=== PATIENT | female | born 1980 | race Caucasian/White ===

== ENCOUNTER → 2023-10-08 10:05 | Outpatient (REF) | payer OTHER, SELFPAY | LOC: HWRAD 10:05 | PROVIDERS: ATTENDING PHYSICIAN Internal Medicine Hematology & Oncology; FAMILY PHYSICIAN Internal Medicine | DX: C81.02 Nodular lymphocyte predominant Hodgkin lymphoma, intrathoracic lymph nodes (principal) | CPT/HCPCS: 71260; 74177; Q9967 ==

== ENCOUNTER → 2024-06-22 10:20 | Outpatient (REF) | payer OTHER, SELFPAY | LOC: HWRAD 10:20 | PROVIDERS: ATTENDING PHYSICIAN Internal Medicine | DX: M25.511 Pain in right shoulder (principal); Z00.00 Encounter for general adult medical examination without abnormal findings; R53.83 Other fatigue; E55.9 Vitamin D deficiency, unspecified | CPT/HCPCS: 71046 ==

== ENCOUNTER 2024-10-19 11:43 | Emergency (ER) | payer OTHER, SELFPAY ==
[2024-10-19 11:45] VITALS: BP 136/93
[2024-10-19 12:15] VITALS: BMI 24.5
--- NOTE | 2024-10-19 13:10 | ED.GENMED ---
History of Present Illness
General
Chief Complaint: Musculo-Skeletal Complaint
Source: patient
Exam Limitations: none
Time Seen by Provider: 10/19/24 12:49
Nursing documentation reviewed up to this point in time: agreed with
History of Present Illness
History of Present Illness:
Patient with history of non-Hodgkin's lymphoma, currently in complete remission since 2022, presents to ED secondary to persistent right shoulder/chest wall pain over the past 2 months. Patient has seen her primary care physician and has received a
normal outpatient chest x-ray. Denies direct trauma. Denies fever or chills. Denies coughing. Denies nausea or vomiting. Denies loss of appetite. Denies recent weight loss. Patient states that her pain is worse with any movement of the right
shoulder. Denies loss of sensation or weakness. 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
Past History
Past History
ED Past Medical History: Cancer (hodkgins lymphoma), Psychiatric (Anxiety) and Other (Migraines. UTi )
ED Past Surgical History: Other (Tummy tuck - outcome complications (hemorrhage))
Social History
Tobacco: Non-smoker
Alcohol: None
Drug: None
Personal: Other (Seperated)
Living: with family
Employment: Employed
Family History
Family History: Diabetes and Hypertension
Review of Systems
Review of Systems
Allergies reviewed?: Yes
All Other Systems: ROS reviewed and negative except as documented in HPI and ROS
Constitutional: Reports no symptoms; Denies fever
Respiratory: Reports no symptoms; Denies cough or trouble breathing
Cardiac: Reports no symptoms
ABD/GI: Reports no symptoms; Denies vomiting
Musculoskeletal: Reports joint pain (shoulder)
Skin: Reports no symptoms
Neurological: Reports no symptoms; Denies weakness or numbness
Phy Exam
Physical Exam
Physical Exam:
Physical Exam
General: mild painful distress, not acutely ill. afebrile.
Head: nc/at. eomi
Neck: supple. no meningeal signs.
Heart: s1/s2 regular rate and rhythm
Lungs: no acute respiratory distress. clear bilaterally. chest wall nontender to palpation
Abdomen: normal bowel sounds. not tender.
Neuro: alert and oriented x 3. no focal neurological deficits
Skin: no rash
Psychiatric: well kept. interactive and cooperative
Extremities: Focal tenderness to palpation over lateral and anterior shoulder, without deformity/swelling/warmth, worse with range of motion. No lymph nodes palpable.
Course
Orders/Labs/Results
Orders:
Orders
10/19/24 13:06
CT Chest With Iv Contrast Urgent
Comment:
Reason For Exam: right sided cp w hx lymphoma and ACW port
Dexamethasone Sod Phosphate [Decadron] 10 mg IV NOW STA
Ketorolac [Toradol] 15 mg IV NOW STA
10/19/24 13:07
Test Result ONCE
10/19/24 13:31
Basic Metabolic Panel Urgent
Complete Blood Count/No Diff Urgent
HCG, Serum Qualitative Screen Urgent
10/19/24 16:53
Sling Right-Treatment ONCE
Abnormal Lab Results
10/19/24
13:31
RBC 4.08 L 10^6/uL
(4.20-5.40)
Hct 36.6 L %
(37.0-47.0)
MPV 10.9 H fL
(7.4-10.4)
Chloride 108 H mmol/L
(98-107)
10/19/24 13:31
10/19/24 13:31
Vital Signs
Initial and Last Documented VS:
Initial Vital Signs
Temp Pulse Resp BP Pulse Ox
98.0 F 72 16 136/93 100
10/19/24 11:45 10/19/24 11:45 10/19/24 11:45 10/19/24 11:45 10/19/24 11:45
Last Documented Vital Signs
Temp Pulse Resp BP Pulse Ox
97.7 F 66 16 122/78 96
10/19/24 17:01 10/19/24 17:01 10/19/24 17:01 10/19/24 17:01 10/19/24 17:01
MDM/Problems Addressed
MDM/Problems Addressed:
CT chest report reviewed and discussed with patient. Patient given copy of CT report, to be discussed with her plastic surgeon.
Patient's presenting symptoms, however, likely secondary to right shoulder joint pain, likely rotator cuff injury, from repetitive use due to her occupation. Patient will be given arm sling for comfort, along with referral to orthopedic surgery for
an outpatient consultation, including potential therapy versus outpatient MRI, if symptoms persist. Patient otherwise is afebrile, hemodynamically stable, and neurologically intact, at time of discharge. Patient expresses understanding at time of
discharge.
*Critical Care Note
Total Time (30-74mins, 75-104mins- exclusive of procedures): Not Applicable
ED Attending Note
-
Portions of this chart may have been created with voice recognition software.� Occasional wrong word or��sound alike� substitutions may have occurred due to the inherent limitations of voice recognition software.
Discharge Plan
Departure
Patient Disposition: Home (Routine Discharge)
Date of Disposition: 10/19/24
Time of Disposition: 16:42
Patient with high blood pressure during this ER visit?: No
Condition: Good
Discharge Problem:
Left shoulder pain
Instructions: Overuse Injuries (DC)
Prescriptions:
New
prednisone 50 mg Tablet
50 mg PO DAILY Qty: 2 0RF
No Action
bupropion HCl 100 MG tablet sustained-release 12 hr
100 mg PO DAILY
lorazepam 1 MG tablet
1 mg PO TIDPRN PRN (Reason: anxiety)
Patient Comments:
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
multivitamin with folic acid [Tab-A-Jaimie] 1 TABLET tablet
1 tab PO DAILY
Naltrex 1.5 mg Capsule
3 mg PO DAILY
metoprolol succinate 25 mg tablet extended release 24 hr
25 mg PO DAILY Qty: 30 0RF
Referrals:
Geno Jung DO [Family Provider, Internal Medicine]
Samy Monson MD [Active, Orthopedics]
Activity Restrictions/Additional Instructions:
As discussed, please follow-up with your primary care physician and/or referred orthopedic surgeon for reevaluation. Your prescription has been sent electronically to [facility] pharmacy in [place].
Interventions
Interventions:
*Risk Screen - Suicide Last Done: 10/19/24 12:15
*General Assessment Last Done: 10/19/24 12:15
*Neglect/Abuse Screening Last Done: 10/19/24 12:15
*ED- Fall Risk Assessment Last Done: 10/19/24 12:15
*ED COVID-19 Vaccine History Last Done: 10/19/24 12:15
*Nursing Disposition Last Done: 10/19/24 17:01
ED-Musculoskeletal Assessment Last Done: 10/19/24 12:15
Discharge Date and Time
Discharge Date/Time: 10/19/24 17:02
Print Language: SLOVAK
[2024-10-19] MEDS: DECADRON 10 MG IV (13:37)
[2024-10-19] MEDS: TORADOL 15 MG IV (13:38)
[2024-10-19 13:39] VITALS: BP 130/83
[2024-10-19 13:41] LABS: Hematocrit 36.6 % (37.0-47.0); Hemoglobin 12.4 g/dL (12.0-16.0); Mean Corp Hgb Conc. 33.9 g/dL (33.0-37.0); Mean Corpuscular Hgb 30.4 pg (27.0-31.0); Mean Corpuscular Volume 89.7 fL (81.0-99.0); Mean Platelet Volume 10.9 fL (7.4-10.4); Platelet Count 210 10^3/uL (130-400); Red Blood Cell Count 4.08 10^6/uL (4.20-5.40); Red Cell Dist. Width 12.8 % (11.5-14.5); White Blood Cell Count 6.3 10^3/uL (4.8-10.8)
[2024-10-19 13:53] LABS: HCG, Serum Qualitative Screen Negative
[2024-10-19 13:57] LABS: Blood Urea Nitrogen 14 mg/dl (7-17); Calcium 9.1 mg/dl (8.4-10.2); Carbon Dioxide 25 mmol/L (22-30); Chloride 108 mmol/L (98-107); Estimated Creatinine Clearance 122 ml/min; Glucose 98 mg/dl (70-99); Potassium 4.5 mmol/L (3.5-5.1); Sodium 139 mmol/L (135-145); eGFR > 60.00
[2024-10-19 15:46] VITALS: BP 122/78
--- NOTE | 2024-10-19 17:00 | EDRN ---
Reviewed discharge instructions with patient. Verbalized understanding. Ambulated with steady gait to the lobby.
[2024-10-19 17:01] VITALS: BP 122/78
== END 2024-10-19 17:02 | disposition home or self-care (01) ==
LOC: EMR 11:43
PROVIDERS: EMERGENCY PHYSICIAN Emergency Medicine; FAMILY PHYSICIAN Internal Medicine
DX: M25.512 Pain in left shoulder (principal); R07.89 Other chest pain; C85.9A Non-Hodgkin lymphoma, unspecified, in remission; F41.9 Anxiety disorder, unspecified; G43.909 Migraine, unspecified, not intractable, without status migrainosus; Z87.440 Personal history of urinary (tract) infections; Z88.1 Allergy status to other antibiotic agents; Z88.5 Allergy status to narcotic agent
CPT/HCPCS: 99284; 96374; 96375; 71260; 80048; 84703; 85027; Q9967